=== PATIENT | female | born 1935 | race Caucasian/White ===

== ENCOUNTER → 2018-11-21 | Outpatient (CLI) | payer MEDICARE ==
[~2018-11-21] MED LIST: ACHYD1T PO; AMLO10TA82 PO; ASPI-875 PO; BENAZEPRIL/HCTZ PO; CALC-80 PO; DCS100C PO; HYDR1TAB PO; IBUP-792 PO; OMEG-9 PO; PRAV40TA PO; PRAV80TA2 PO
--- NOTE | 2018-11-21 12:37 | Diagnostic Imaging Report ---
INDICATION: Routine screening. COMPARISON is made with prior mammogram from 09/09/2015 and 08/02/2012. 2-D and 3-D bilateral screening mammography was performed with CAD. FINDINGS: Both breasts are heterogeneously dense, limiting the sensitivity of mammography. There are innumerable micro-calcifications scattered throughout both breasts, limiting evaluation. These are similar to prior exams. Overall breast parenchymal pattern appears to be stable. No dominant mass is seen. The axillae are unremarkable. IMPRESSION: BI-RADS category 2. No mammographic features suspicious for malignancy are identified. ACR BI-RADS Category 2: Benign findings. Result letter will be mailed to the patient. Note: At least 10% of breast cancer is not imaged by mammography. Dictated by: Dictated on workstation # [id number]
== END ==
LOC: RAD 07:45
PROVIDERS: ATTEND Nurse Practitioner Family
DX: Z12.31 Encounter for screening mammogram for malignant neoplasm of breast (principal)
CPT/HCPCS: 77067

== ENCOUNTER → 2023-02-09 | Outpatient (CLI) | payer MEDICARE, OTHER | LOC: CARD 11:54 | PROVIDERS: ATTEND Nurse Practitioner Family | DX: I48.91 Unspecified atrial fibrillation (principal) | CPT/HCPCS: 93005 ==

== ENCOUNTER → 2023-02-23 | Outpatient (CLI) | payer MEDICARE, OTHER ==
--- NOTE | 2023-02-23 09:52 | Diagnostic Imaging Report ---
PROCEDURE: CT head without contrast. TECHNIQUE: Multiple contiguous axial images were obtained through the brain without the use of intravenous contrast. Auto Exposure Controls were utilized during the CT exam to meet ALARA standards for radiation dose reduction. INDICATION: Memory loss. COMPARISON: None available. FINDINGS: No acute infarct or hemorrhage. Scattered hypoattenuation within the periventricular and subcortical white matter. No midline shift or mass effect. Mild generalized prominence of the ventricles and cortical sulci. The cisterns are patent. The sella is normal. Scattered calcifications of the intracranial vasculature. Complete opacification of the right maxillary sinus with associated mucoperiosteal reaction. The globes and orbits are normal. Skull is normal. IMPRESSION: No acute intracranial hemorrhage. No large vascular territory conley-white loss. No intracranial mass, midline shift, or hydrocephalus. Mild chronic small vessel ischemic disease. Mild global volume loss. Chronic right maxillary sinusitis. Dictated by: Dictated on workstation # [id number]
== END ==
LOC: RAD 09:25
PROVIDERS: ATTEND Family Medicine
DX: R41.3 Other amnesia (principal)
CPT/HCPCS: 70450

== ENCOUNTER 2023-05-31 15:39 | Emergency (ER) | payer MEDICARE, OTHER ==
--- NOTE | 2023-05-31 16:18 | ED Head Injury ---
General Chief Complaint: Trauma-Non Activation Stated Complaint: FALL - FACE BRUSING Nursing Triage Note: PT AMB TO [facility] 5 WITH CC OF FALL MONDAY. PT SEEN AT DR [facility] AND SENT TO ED FOR FURTHER EVALUATION. PT AT BEDSIDE REPORTS PT HAS HAD INCREASED CONFUSION AND BALANCE ISSUES. PT DENIES LOC. Source: patient, family Exam Limitations: clinical condition History of Present Illness Date Seen by Provider: May 31, 2023 Time Seen by Provider: 15:55 Initial Comments 88-year-old female presents to the ER with for increased confusion since she fell on Monday. Fall was unwitnessed, and patient was unable to describe how she fell to her after the fall. Patient's reports that patient has been having increased memory loss for the last 6 months, but has become much worse today. He states that she was having hallucinations that their children were in the house. States that yesterday she woke up from a nap and thought that it was morning and she wanted to fix breakfast. He states that she was putting things away in places where things did not belong. He reports that the night before last she was sleeping in a recliner, he attempted to wake her up and had a lot of difficulty waking her up. Patient was seen by her primary care provider who sent her here for evaluation. Patient is alert to self, she knows she is in the hospital, she knows the month is May, but she thinks that the year is 1931. She was unable to state why she is in the hospital though. Patient's states that patient has not been complaining of anything. Denies any nausea, vomiting, diarrhea, dysuria. Reports she had 1 episode of abdominal pain a couple of days ago but none since. Patient's was also concerned that the bruising has spread to her entire face, initially it was only her forehead. She also had a bruise on her left forearm which has increased in size into her hand. Past medical history includes diabetes, atrial fibrillation, hypertension. She currently takes Eliquis, metformin, metoprolol, and losartan. Allergies and Home Medications Allergies Coded Allergies: No Known Drug Allergies (Unverified , 02/25/13) Patient Home Medication List Home Medication List Reviewed: Yes Amlodipine Besylate (Norvasc Tablet) 10 Mg Tablet, 10 MG PO DAILY, (Reported) Entered as Reported by: MEILSA RICH on 05/07/13 1305 Aspirin (Piute Aspirin) 81 Mg Tablet., 81 MG PO DAILY, (Reported) Entered as Reported by: MELISA RICH on 05/07/13 1305 Calcium Carbonate/Vitamin D3 (Calcium 600 + D Caplet) 1 Each Tablet, 1 TAB PO DAILY, (Reported) Entered as Reported by: MELISA RICH on 05/07/13 1305 Docusate Sodium (Colace) 100 Mg Capsule, 100 MG PO BID, (Reported) Entered as Reported by: RADHA MAYNARD on 05/14/13 1004 Hydrocodone Bit/Acetaminophen (Lorcet Plus 10/325 Mg) 1 Tab Tablet, 1-2 TAB PO Q3H, (Reported) Entered as Reported by: RADHA MAYNARD on 05/14/13 1004 Hydrocodone Bit/Acetaminophen (Vicodin 5-500 Tablet) 1 Each Tablet, 1 EACH PO Q4HR PRN PRN, (Reported) Entered as Reported by: FÁTIMA AYERS on 05/16/13 1606 Ibuprofen (Motrin) 400 Mg Tablet, 400 MG PO Q6H PRN, (Reported) Entered as Reported by: RADHA MAYNARD on 05/14/13 1004 [place]-3/Dha/Epa/Fish Oil (Fish Oil 1,400 Mg Softgel) 1 Each Capsule.dr, 1,400 MG PO DAILY, (Reported) Entered as Reported by: MELISA RICH on 05/07/13 1305 Pravastatin Sodium (Pravachol) 40 Mg Tablet, 40 MG PO DAILY, (Reported) Entered as Reported by: MELISA RICH on 05/07/13 1305 [Benazepril/Hctz] , 1 TAB PO DAILY, (Reported) Entered as Reported by: MELISA RICH on 05/07/13 1305 Review of Systems Review of Systems Constitutional: see HPI Past Nadxqqw-Dfwlxi-Oxqbjy Hx Patient Social History Tobacco Use?: No Substance use?: No Alcohol Use?: No Seasonal Allergies Seasonal Allergies: Yes Past Medical History Surgery/Hospitalization HX: AFIB, DM, HYST Asthma Reproductive Disorders: Yes (MASS IN PELVIS) PULMONOLOGY PHYSICIAN History: Hysterectomy Sexually Transmitted Disease: No HIV/AIDS: No Arthritis, Fractures Hearing Impairment: Hard of Hearing Physical Exam Vital Signs Vital Signs - First Documented 05/31/23 15:44 Temp 37.2 Pulse 110 Resp 18 B/P (MAP) 189/98 (128) Pulse Ox 97 O2 Delivery Room Air Capillary Refill : Less Than 3 Seconds Height, Weight, BMI Height: '" Weight: lbs. oz. kg; BMI Method:Stated General Appearance: WD/WN, no apparent distress HEENT: PERRL/EOMI, TMs normal, other (Hematoma to left forehead, ecchymosis to entire face, symmetrical movement of face, except for when raising eyebrows, patient unable to raise left eyebrow likely due to large hematoma above left eyebrow) Neck: full range of motion, supple, normal inspection, tender midline (Mild) Cardiovascular: regular rate, rhythm Respiratory: lungs clear, normal breath sounds, no respiratory distress, no accessory muscle use Extremities: normal range of motion, non-tender, other (Ecchymosis to right hand and wrist, nontender) Psychiatric: alert [place] Nerves: normal speech, PERRL Motor/Sensory: no motor deficit, no sensory deficit Skin: warm/dry, ecchymosis (To face and left hand and wrist) Progress/Results/Core Measures Results/Orders Lab Results Laboratory Tests Test 05/31/23 16:19 05/31/23 17:39 Range/Units White Blood Count 8.0 4.3-11.0 10^3/uL Red Blood Count 4.59 3.80-5.11 10^6/uL Hemoglobin 12.7 11.5-16.0 g/dL Hematocrit 38 35-52 % Mean Corpuscular Volume 83 80-99 fL Mean Corpuscular Hemoglobin 28 25-34 pg Mean Corpuscular Hemoglobin Concent 33 32-36 g/dL Red Cell Distribution Width 14.9 H 10.0-14.5 % Platelet Count 204 130-400 10^3/uL Mean Platelet Volume 11.4 9.0-12.2 fL Immature Granulocyte % (Auto) 0 % Neutrophils (%) (Auto) 61 42-75 % Lymphocytes (%) (Auto) 30 12-44 % Monocytes (%) (Auto) 8 0-12 % Eosinophils (%) (Auto) 1 0-10 % Basophils (%) (Auto) 1 0-10 % Neutrophils # (Auto) 4.9 1.8-7.8 10^3/uL Lymphocytes # (Auto) 2.4 1.0-4.0 10^3/uL Monocytes # (Auto) 0.6 0.0-1.0 10^3/uL Eosinophils # (Auto) 0.1 0.0-0.3 10^3/uL Basophils # (Auto) 0.0 0.0-0.1 10^3/uL Immature Granulocyte # (Auto) 0.0 0.0-0.1 10^3/uL Sodium Level 138 135-145 MMOL/L Potassium Level 3.3 L 3.6-5.0 MMOL/L Chloride Level 103 98-107 MMOL/L Carbon Dioxide Level 22 21-32 MMOL/L Anion Gap 13 5-14 MMOL/L Blood Urea Nitrogen 19 H 7-18 MG/DL Creatinine 0.78 0.60-1.30 MG/DL Estimat Glomerular Filtration Rate 73 BUN/Creatinine Ratio 24 Glucose Level 115 H 70-105 MG/DL Calcium Level 9.8 8.5-10.1 MG/DL Corrected Calcium 9.7 8.5-10.1 MG/DL Total Bilirubin 0.7 0.1-1.0 MG/DL Aspartate Amino Transf (AST/SGOT) 22 5-34 U/L Alanine Aminotransferase (ALT/SGPT) 16 0-55 U/L Alkaline Phosphatase 56 40-136 U/L Total Protein 7.7 6.4-8.2 GM/DL Albumin 4.1 3.2-4.5 GM/DL Urine Color YELLOW Urine Clarity CLEAR Urine pH 6.0 5-9 Urine Specific [place] 1.010 L 1.016-1.022 Urine Protein NEGATIVE NEGATIVE Urine Glucose (UA) NEGATIVE NEGATIVE Urine Ketones NEGATIVE NEGATIVE Urine Nitrite NEGATIVE NEGATIVE Urine Bilirubin NEGATIVE NEGATIVE Urine Urobilinogen 0.2 < = 1.0 MG/DL Urine Leukocyte Esterase NEGATIVE NEGATIVE Urine RBC (Auto) NEGATIVE NEGATIVE Urine RBC NONE /HPF Urine WBC NONE /HPF Urine Squamous Epithelial Cells RARE /HPF Urine Crystals NONE /LPF Urine Bacteria NEGATIVE /HPF Urine Casts NONE /LPF Urine Mucus NEGATIVE /LPF Urine Culture Indicated NO My Orders Orders - SABA NICHOLSON SLAG DUMPER Wrist, Left, 3 Views Or More (05/31/23 16:06) Hand, Left, 3 Views (05/31/23 16:06) Ua Culture If Indicated (05/31/23 16:06) Cbc With Automated Diff (05/31/23 16:08) Comprehensive Metabolic Panel (05/31/23 16:08) Ct Head/Face/Cervical Wo (05/31/23 16:06) Potassium Chloride (Tablet) (K Dur Table (05/31/23 17:15) Losartan Tablet (Cozaar Tablet) (05/31/23 17:45) Metoprolol Succinate (Xl) Tab (Toprol Xl (05/31/23 17:45) Medications Given in ED Current Medications Medications Dose Ordered Sig/Adela Route Start Time Stop Time Status Last Admin Dose Admin Losartan Potassium 25 mg ONCE ONCE PO 05/31/23 17:45 05/31/23 17:46 DC 05/31/23 17:59 25 MG Metoprolol Succinate 25 mg ONCE ONCE PO 05/31/23 17:45 05/31/23 17:46 DC 05/31/23 17:59 25 MG Potassium Chloride 40 meq ONCE ONCE PO 05/31/23 17:15 05/31/23 17:16 DC 05/31/23 17:15 40 MEQ Vital Signs/I&O 05/31/23 05/31/23 15:44 18:24 Temp 37.2 Pulse 110 84 Resp 18 18 B/P (MAP) 189/98 (128) 184/96 Pulse Ox 97 97 O2 Delivery Room Air Room Air Blood Pressure Mean: 128 Progress Progress Note : Progress Note Patient seen and evaluated, resting comfortably in bed, no acute distress. Based on exam and symptoms, work-up initiated including CBC, CMP, Accu-Chek, UA, CT head and neck, x-ray of right wrist and hand. I explained the reason that the bruising has spread to the patient and . verbalized understanding. 1734 Labs and imaging reviewed. CBC grossly normal. CMP shows slightly decre ased potassium 3.3, slightly elevated 19. Wrist x-ray shows no acute bony abnormality. No acute bony abnormality of the left hand. 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 CT of the head, neck, and face shows no acute fracture or dislocation of the cervical spine, no skull fracture, no intracranial hemorrhage, no facial fractures. It does show right maxillary sin us thickening. Results discussed with patient and . Patient has not yet given a urine specimen. Patient states she is able to go at this time. Patient ambulated to restroom with steady gait. Will administer patient's p.m. doses of metoprolol and losartan due to elevated blood pressure. Highest reading was 208/91. 1817 blood pressure has improved to 184/96. Urinalysis negative for infection. Results discussed with patient and . Discharge instructions and return precautions provided. Diagnostic Imaging Diagonstic Imaging: Xray Plain Films/CT/US/NM/MRI: other (wrist) Comments [facility] [place] [id number] PT STATUS: REG ER : 1935 PHYSICIAN: SABA NICHOLSON APRN ADMIT DATE: 05/31/23/ER Draft Date of Exam:05/31/23 WRIST, LEFT, 3 VIEWS OR MORE EXAMINATION: Left wrist radiographs, 3 views. COMPARISON: None. HISTORY: 88-year-old female, fall. Left wrist pain. FINDINGS: There is no identified acute fracture. Bone alignment is unremarkable. The joint spaces are well preserved. IMPRESSION: 1. No identified acute bony abnormality of the left wrist. Dictated on workstation # [id number] Dict: 05/31/23 1646 Trans: 05/31/23 1648 CV [id number] Interpreted by: ANGEL ENGEL MD Electronically signed by: Diagonstic Imaging: Xray Plain Films/CT/US/NM/MRI: hand Comments [facility] [place] [facility] [id number] PT STATUS: REG ER : 1935 PHYSICIAN: SABA NICHOLSON APRN ADMIT DATE: 05/31/23/ER Draft Date of Exam:05/31/23 HAND, LEFT, 3 VIEWS EXAMINATION: Left hand radiographs, 3 views. COMPARISON: None. HISTORY: 88-year-old female, fall. Left hand pain. FINDINGS: The bones appear potentially demineralized. There is mild joint space loss of the proximal interphalangeal, distal interphalangeal, and first interphalangeal joints. There is no identified bone erosion. There is no periosteal reaction. There is some associated osteophyte formation at these articulations. There is no identified acute fracture. There is no subluxation or dislocation. IMPRESSION: 1. No identified acute bony abnormality of the left hand. 2. 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 Dictated on workstation # [id number] Dict: 05/31/23 1647 Trans: 05/31/23 1651 CV [id number] Interpreted by: ANGEL ENGEL MD Electronically signed by: Asad Imaging: CT Plain Films/CT/US/NM/MRI: facial bones, c-spine, head Comments [facility], [place] NAME: AGGIE CARREON [facility] REC#: [id number] PT STATUS: REG ER : 1935 PHYSICIAN: SABA NICHOLSON APRN ADMIT DATE: 05/31/23/ER Signed Date of Exam:05/31/23 CT HEAD/FACE/CERVICAL WO PROCEDURE: CT head, face, and cervical spine without contrast. TECHNIQUE: Multiple contiguous axial images were obtained through the head, neck, and facial bones without the use of intravenous contrast. Sagittal and coronal reformations through the cervical spine and facial bones were also performed. Auto Exposure Controls were utilized during the CT exam to meet ALARA standards for radiation dose reduction. INDICATION: Headache, facial pain and neck pain after trauma. COMPARISON: CT of the head on 02/23/2023. FINDINGS: Left frontal scalp hematoma. No skull fracture. Mucosal thickening within the right maxillary and right frontal sinuses. No acute intracranial hemorrhage. The olsen-white matter differentiation is preserved. Scattered hypoattenuation within the periventricular and subcortical white matter. Mild generalized prominence of the ventricles and cortical sulci. Scattered calcifications of the intracranial vasculature. The sella is normal. The subarachnoid cisterns are maintained. No midline shift or mass effect. No intracranial mass or fluid collection. The nasal bones intact. The zygomatic arch is intact. The mandible is intact. Pterygoid plates are intact. The orbits are intact. Reversal of the cervical lordosis. Mild to moderate multilevel facet arthritis. Mild anterolisthesis of C4-C5. No acute fracture or dislocation of the cervical spine. No lytic or sclerotic bone lesion. Included views of the neck demonstrates bilateral carotid atherosclerosis and 1.7 cm left thyroid lobe nodule. Included lung apices are clear. IMPRESSION: No acute fracture or dislocation of the cervical spine. Left frontal scalp hematoma. No skull fracture. No acute intracranial hemorrhage. No large vascular territory conley-white loss. No intracranial mass, midline shift, or hydrocephalus. No facial fractures. Right maxillary sinus also thickening may be seen with sinusitis. Dictated by: Dictated on workstation # [id number] Dict: 05/31/23 1649 Trans: 05/31/23 1656 [facility] [place] [id number] Interpreted by: SANDRA JUARES DO Electronically signed by: SANDRA JUARES DO 05/31/23 1656 Departure Impression Primary Impression: Concussion Disposition: 01 HOME, SELF-CARE Condition: Stable Departure-Patient Inst. Decision time for Depature: 18:18 Referrals: AYLEEN GRANADOS MD (PCP/Family) Primary Care Physician Patient Instructions: Concussion in adults Add. Discharge Instructions: Follow-up with primary care provider. We gave her her evening doses of her blood pressure medications, you do not need to give her her blood pressure medications tonight. She may take 1000 mg of Tylenol every 8 hours as needed for pain. Return for worsening or uncontrolled headache, vision changes, recurrent vomiting, difficulty with normal activities, worsening of abnormal behavior, or any other new, concerning, or worsening symptoms. All discharge instructions reviewed with patient and/or family. Voiced understanding. Copy Copies To 1: AYLEEN GRANADOS MD, BRITTANY R APRN May 31, 2023 16:18
[2023-05-31 16:28] LABS: BASOPHILS % (AUTO) 1 % (0-10); EOSINOPHILS # (AUTO) 0.1 10^3/uL (0.0-0.3); EOSINOPHILS % (AUTO) 1 % (0-10); HEMATOCRIT 38 % (35-52); HEMOGLOBIN 12.7 g/dL (11.5-16.0); LYMPHOCYTES # (AUTO) 2.4 10^3/uL (1.0-4.0); LYMPHOCYTES % (AUTO) 30 % (12-44); MEAN CORPUSCULAR HEMOGLOBIN 28 pg (25-34); MEAN CORPUSCULAR HGB CONC 33 g/dL (32-36); MEAN CORPUSCULAR VOLUME 83 fL (80-99); MEAN PLATELET VOLUME 11.4 fL (9.0-12.2); MONOCYTES # (AUTO) 0.6 10^3/uL (0.0-1.0); MONOCYTES % (AUTO) 8 % (0-12); NEUTROPHILS # (AUTO) 4.9 10^3/uL (1.8-7.8); NEUTROPHILS % (AUTO) 61 % (42-75); PLATELET COUNT 204 10^3/uL (130-400)
[2023-05-31 16:35] LABS: ALBUMIN 4.1 GM/DL (3.2-4.5); POTASSIUM 3.3 MMOL/L (3.6-5.0)
[2023-05-31 16:37] LABS: CALCIUM 9.8 MG/DL (8.5-10.1)
[2023-05-31 16:38] LABS: TOTAL PROTEIN 7.7 GM/DL (6.4-8.2)
[2023-05-31 16:39] LABS: BILIRUBIN,TOTAL 0.7 MG/DL (0.1-1.0)
[2023-05-31 16:41] LABS: CREATININE SERUM 0.78 MG/DL (0.60-1.30)
--- NOTE | 2023-05-31 16:49 | Diagnostic Imaging Report ---
EXAMINATION: Left wrist radiographs, 3 views. COMPARISON: None. HISTORY: 88-year-old female, fall. Left wrist pain. FINDINGS: There is no identified acute fracture. Bone alignment is unremarkable. The joint spaces are well preserved. IMPRESSION: 1. No identified acute bony abnormality of the left wrist. Dictated by: Dictated on workstation # [id number]
--- NOTE | 2023-05-31 16:51 | Diagnostic Imaging Report ---
EXAMINATION: Left hand radiographs, 3 views. COMPARISON: None. HISTORY: 88-year-old female, fall. Left hand pain. FINDINGS: The bones appear potentially demineralized. There is mild joint space loss of the proximal interphalangeal, distal interphalangeal, and first interphalangeal joints. There is no identified bone erosion. There is no periosteal reaction. There is some associated osteophyte formation at these articulations. There is no identified acute fracture. There is no subluxation or dislocation. IMPRESSION: 1. No identified acute bony abnormality of the left hand. 2. 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 Dictated by: Dictated on workstation # [id number]
--- NOTE | 2023-05-31 16:58 | Diagnostic Imaging Report ---
PROCEDURE: CT head, face, and cervical spine without contrast. TECHNIQUE: Multiple contiguous axial images were obtained through the head, neck, and facial bones without the use of intravenous contrast. Sagittal and coronal reformations through the cervical spine and facial bones were also performed. Auto Exposure Controls were utilized during the CT exam to meet ALARA standards for radiation dose reduction. INDICATION: Headache, facial pain and neck pain after trauma. COMPARISON: CT of the head on 02/23/2023. FINDINGS: Left frontal scalp hematoma. No skull fracture. Mucosal thickening within the right maxillary and right frontal sinuses. No acute intracranial hemorrhage. The olsen-white matter differentiation is preserved. Scattered hypoattenuation within the periventricular and subcortical white matter. Mild generalized prominence of the ventricles and cortical sulci. Scattered calcifications of the intracranial vasculature. The sella is normal. The subarachnoid cisterns are maintained. No midline shift or mass effect. No intracranial mass or fluid collection. The nasal bones intact. The zygomatic arch is intact. The mandible is intact. Pterygoid plates are intact. The orbits are intact. Reversal of the cervical lordosis. Mild to moderate multilevel facet arthritis. Mild anterolisthesis of C4-C5. No acute fracture or dislocation of the cervical spine. No lytic or sclerotic bone lesion. Included views of the neck demonstrates bilateral carotid atherosclerosis and 1.7 cm left thyroid lobe nodule. Included lung apices are clear. IMPRESSION: No acute fracture or dislocation of the cervical spine. Left frontal scalp hematoma. No skull fracture. No acute intracranial hemorrhage. No large vascular territory conley-white loss. No intracranial mass, midline shift, or hydrocephalus. No facial fractures. Right maxillary sinus also thickening may be seen with sinusitis. Dictated by: Dictated on workstation # [id number]
[2023-05-31] MEDS ORDERED: KCL 20 MEQ TAB (K-DUR) PO ONE (17:15)
[2023-05-31] MEDS ORDERED: LOSARTAN 25 MG (COZAAR) TAB PO ONE (17:45)
[2023-05-31 17:46] LABS: BILIRUBIN,URINE NEGATIVE (NEGATIVE); CLARITY,URINE CLEAR; COLOR,URINE YELLOW; GLUCOSE, URINE (UA) NEGATIVE (NEGATIVE); KETONES,URINE NEGATIVE (NEGATIVE); LEUKOCYTE ESTERASE ,URINE NEGATIVE (NEGATIVE); NITRITE,URINE NEGATIVE (NEGATIVE); PROTEIN,URINE NEGATIVE (NEGATIVE)
[2023-05-31 17:58] LABS: BACTERIA,URINE NEGATIVE /HPF; SQUAMOUS EPITHELIAL CELL,UR RARE /HPF
[2023-05-31 18:24] VITALS: BP 184/96
== END 2023-05-31 18:24 | disposition home or self-care (01) ==
LOC: EDUNIT# 15:39 → ER 15:40
DX: S06.0X0A Concussion without loss of consciousness, initial encounter (principal); S00.83XA Contusion of other part of head, initial encounter; S60.211A Contusion of right wrist, initial encounter; M19.042 Primary osteoarthritis, left hand; I48.91 Unspecified atrial fibrillation; I10 Essential (primary) hypertension; E11.9 Type 2 diabetes mellitus without complications; Z79.01 Long term (current) use of anticoagulants; Z79.84 Long term (current) use of oral hypoglycemic drugs; Z79.899 Other long term (current) drug therapy; W19.XXXA Unspecified fall, initial encounter
CPT/HCPCS: 36415; 70450; 70486; 72125; 73110; 73130; 80053; 81000; 85025